=== PATIENT | male | born 1970 | race American Indian/Alaskan Native ===

== ENCOUNTER 2021-03-11 13:55 | Emergency (ER) | payer SELFPAY ==
--- NOTE | 2021-03-11 14:38 | EDM.PDOC ---
<Juan Samuels - Last Filed: 03/12/21 05:37> ED HPI GENERAL MEDICAL PROBLEM - General Chief Complaint: Cardiovascular Problem Stated Complaint: [facility] Time Seen by Provider: 03/11/21 14:00 - Related Data Allergies Allergy/AdvReac Type Severity Reaction Status Date / Time No Known Allergies Allergy Verified 03/11/21 14:08 Home Meds: Home Meds . [No Known Home Meds] 03/11/21 [History] ED CARDIOLOGY PROCEDURES - Endotracheal Intubation Time of Intubation: 19:30 ET Intubation Indication: Respiratory Failure, Airway Protection Preparation: Balloon Tested, BVM Set Up, Difficult Airway Equip Airway Assessment: Obese, Loose Teeth Pre-Oxygenation: 100% FiO2 Anesthesia Meds: Etomidate, Rocuronium Placement: Orotracheal Cords Visualized: Yes ETT Size In mm: 8.0 Number of Attempts: 1 Confirmed By: CO2 Indicator, Bilateral Breath Sounds, Chest Xray Tube Secured By: By RT Course - Re-Assessments/Exams Free Text/Narrative Re-Assessment/Exam: 03/11/21 19:46 Patient was evaluated by myself after routine shift change. Patient obtunded with worsening blood gas. Patient had CO2 level of 120. With altered mental status and rising CO2 levels, patient was immediately intubated without complication. Patient was started on propofol and fentanyl for sedation purposes. End-tidal CO2 showed improvement in the 60s. Patient oxygen level remained stable. 03/11/21 21:30 Patient becoming hypotensive. Given 500 cc fluid boluses patient had not received any fluids up until this point. We will have low threshold to start pressors for this patient given his critical illness. 03/11/21 23:00 Patient had continued to remain hypotensive in the emergency room despite IV fluids. Patient initiated on Levophed drip with improvement in blood pressure. A left internal jugular central vein catheter was placed for IV medications including Levophed. 03/12/21 02:45 Left internal jugular central venous catheter withdrawn approximately 5 cm based on chest x-ray. Departure - Departure Disposition: DC/Tfer to [facility] 02 Clinical Impression: Respiratory failure, Renal insufficiency, Hepatic insufficiency, Alcoholism Referrals: PCP,None [Primary Care Provider] - Forms: ED Department Discharge Critical Care Note - Critical Care Note Total Time (mins): 150 Comments: Critical Care Procedure Note Total critical care time: Approximately 150 minutes Due to a high probability of clinically significant, life threatening deterioration, the patient required my highest level of preparedness to intervene emergently and I personally spent this critical care time directly and personally managing the patient. This critical care time included obtaining a history; examining the patient; pulse oximetry; ordering and review of studies; arranging urgent treatment with development of a management plan; evaluation of patient's response to treatment; frequent reassessment; and, discussions with other providers. This critical care time was performed to assess and manage the high probability of imminent, life-threatening deterioration that could result in multi-organ failure. It was exclusive of separately billable procedures and treating other patients and teaching time. - Assessment/Plan Assessment:: Patient is a 50-year-old male presenting to the emergency room with symptoms concerning for pneumonia, alcohol withdrawal, hepatic failure. Received patient is a signout from Dr. Crespo. On my initial examination, patient was obtunded and required immediate intubation for hypercapnic respiratory failure and altered mental status. Following intubation, patient did become hypotensive which seem likely secondary to intravascular volume depletion, sepsis, critical illness. Potentially confounding factor of undiagnosed heart failure. The patient did respond well to Levophed infusion. A left internal jugular central venous catheter was placed in the interim. In addition, cefepime and Flagyl were initiated for your coverage of possible aspiration pneumonia and sepsis. During the course of my shift, patient remained stable and on the ventilator. There are no beds available in this hospital. There are no beds available in the state of [place]. Several surrounding states including [place], [place], [place] were contacted to no avail. <Cleve Crespo - Last Filed: 03/12/21 13:15> ED HPI GENERAL MEDICAL PROBLEM - History of Present Illness INITIAL COMMENTS - FREE TEXT/NARRATIVE: 50-year-old male brought in by EMS with severe swelling. Patient states he needs to get his life in order. He has been a heavy drinker for many years his last drink was this morning he had a pint of whiskey. The patient has developed significant swelling in his abdomen pelvis groin and lower extremities. He has a hard time estimating how long this has been going on but does think it has been getting worse. Patient is not able to give much more patient denies any chest pain at this time he is short of breath. He is not taking any routine medications and denies significant past medical history. Social & Family History - Tobacco Use Tobacco Use Status *Q: Current Every Day Tobacco User Years of Tobacco use: 40 Packs/Tins Daily: 2 - Caffeine Use Caffeine Use: Reports: None - Alcohol Use Days Per Week of Alcohol Use: 7 Number of Drinks Per Day: 20 Total Drinks Per Week: 140 - Recreational Drug Use Recreational Drug Use: Yes Recreational Drug Type: Reports: Marijuana/Hashish ED ROS GENERAL - Review of Systems Review Of Systems: See Below Constitutional: Reports: No Symptoms HEENT: Reports: No Symptoms Respiratory: Reports: Shortness of Breath Cardiovascular: Reports: Edema. Denies: Chest Pain Endocrine: Reports: Fatigue GI/Abdominal: Reports: Abdominal Pain. Denies: Nausea, Vomiting Skin: Reports: Other (Significant swelling with various draining lesions) Neurological: Reports: Other Psychiatric: Reports: Other (He could be intoxicated still he is slow to respond) ED EXAM, GENERAL - Physical Exam Exam: See Below Exam Limited By: Other (He could be intoxicated he is slow to respond) General Appearance: No Apparent Distress, Other (He is on supplemental oxygen 7 L per nasal cannula he is grossly edematous from head to toe) Eye Exam: Bilateral Eye: Normal Inspection Nose: Normal Inspection, Normal Mucosa, No Blood Throat/Mouth: Normal Inspection, Normal Lips, Normal Teeth, Normal Gums, Normal Oropharynx, Normal Voice, No Airway Compromise Neck: Normal Inspection, Supple, Non-Tender, Full Range of Motion, Other (He is swelling mild swelling up to this level) Respiratory/Chest: No Respiratory Distress, Lungs Clear, Normal Breath Sounds Cardiovascular: Regular Rate, Rhythm, No Murmur, Other (Plus pitting edema lower extremities on up) GI/Abdominal: Normal Bowel Sounds, Distended (Probable ascites), Other (Marked edema also in the abdominal wall some oozing of the skin superior to the umbilicus) (Male) Exam: Other (Marked testicular and genital swelling) Extremities: Other (Marked swelling) Neurological: Slow to Respond #1 Interpretation EKG Date: 03/11/21 Rhythm: NSR Rate (Beats/Min): 109 [place]: Normal P-Wave: Present QRS: Other (Low voltage) ST-T: Normal QT: Normal Comparison: NA - No Prior EKG EKG Interpretation Comments: Abnormal EKG Course - Vital Signs Last Recorded V/S: Last Vital Signs Temp 36.9 C 03/12/21 11:05 Pulse 117 H 03/12/21 12:18 Resp 26 H 03/12/21 12:18 BP 124/75 03/12/21 12:18 Pulse Ox 92 L 03/12/21 12:18 - Orders/Labs/Meds Orders: Active Orders 24 hr Category Date Time Status Insert Guardado Catheter [Insert Urinary Catheter] [OM.PC] Care 03/11/21 16:05 Ordered Routine RASS Sedation Scale [RC] ASDIRECTED Care 03/11/21 19:46 Active RT Ventilator ED, Adult [RC] ASDIRECTED Care 03/12/21 10:24 Active Urinary Catheter Assessment [RC] ASDIRECTED Care 03/11/21 16:05 Active Chest 1V Frontal [CR] DAILY Exams 03/13/21 07:00 Ordered Chest 1V Frontal [CR] DAILY Exams 03/14/21 07:00 Ordered BLOOD CULTURE [MREF] Stat Lab 03/11/21 17:30 Received BLOOD CULTURE [MREF] Stat Lab 03/11/21 17:30 Received BLOOD GAS VENOUS [BG] Stat Lab 03/11/21 19:42 Received Cefepime [Maxipime] 2 gm Med 03/12/21 07:30 Active Sodium Chloride 0.9% [Normal Saline] 50 ml IV Q8H Ketamine [Ketalar] 500 mg Med 03/11/21 22:00 Active Sodium Chloride 0.9% [Normal Saline] 490 ml IV TITRATE Norepinephrine [Levophed] 8 mg Med 03/12/21 09:15 Active Dextrose 5% in Water 242 ml IV TITRATE Sodium Chloride 0.9% [Normal Saline] 1,000 ml Med 03/12/21 07:15 Active IV ASDIRECTED fentaNYL [Sublimaze] 2,500 mcg Med 03/11/21 20:00 Active Sodium Chloride 0.9% [Normal Saline] 200 ml IV TITRATE metroNIDAZOLE/Normal Saline [Flagyl in NS 500 MG/100 ML Med 03/12/21 07:30 Active ] 500 mg Premix Bag 1 bag IV Q8H propofoL [Diprivan 100 ML] 100 ml Med 03/11/21 20:00 Active IV TITRATE Blood Culture x2 Reflex Set [OM.PC] Stat Oth 03/11/21 17:05 Ordered Desired Level of Sedation (RASS) [AST] Click to Edit Oth 03/11/21 19:46 Orde red Medication Orders Propofol (Diprivan 100 Ml) 100 mls @ 3.674 mls/hr IV TITRATE ANDER; Protocol Last Titration: 03/12/21 08:02 Dose: 20 mcg/kg/min, 14.696 mls/hr Documented by: Titration: 03/12/21 06:31 Dose: 15 mcg/kg/min, 11.022 mls/hr Documented by: Admin: 03/12/21 04:15 Dose: 10 mcg/kg/min, 7.348 mls/hr Documented by: Titration: 03/12/21 04:15 Dose: 10 mcg/kg/min, 7.348 mls/hr Documented by: Titration: 03/11/21 22:27 Dose: 10 mcg/kg/min, 7.348 mls/hr Documented by: Titration: 03/11/21 20:09 Dose: 15 mcg/kg/min, 11.022 mls/hr Documented by: Admin: 03/11/21 20:06 Dose: 20 mcg/kg/min, 14.696 mls/hr Documented by: FELIPE Fentanyl 2,500 mcg/ Sodium (Chloride) 250 mls @ 12.247 mls/hr IV TITRATE ANDER; Protocol Last Titration: 03/12/21 11:07 Dose: 5 mcg/kg/hr, 61.235 mls/hr Documented by: Admin: 03/12/21 06:46 Dose: 4 mcg/kg/hr, 48.988 mls/hr Documented by: Titration: 03/12/21 06:33 Dose: 4 mcg/kg/hr, 48.988 mls/hr Documented by: Admin: 03/12/21 01:26 Dose: 4 mcg/kg/hr, 48.988 mls/hr Documented by: Titration: 03/12/21 01:26 Dose: 4 mcg/kg/hr, 48.988 mls/hr Documented by: Titration: 03/11/21 20:53 Dose: 4 mcg/kg/hr, 48.988 mls/hr Documented by: Admin: 03/11/21 20:06 Dose: 2.5 mcg/kg/hr, 30.618 mls/hr Documented by: FELIPE Ketamine HCl 500 mg/ Sodium (Chloride) 500 mls @ 4.8 mls/hr IV TITRATE ANDER Last Infusion: 03/12/21 02:45 Dose: 20 mls/hr Documented by: Infusion: 03/11/21 23:41 Dose: 10 mls/hr Documented by: Admin: 03/11/21 22:27 Dose: 4.8 mls/hr Documented by: FBAIAN Cefepime HCl 2 gm/ Sodium (Chloride) 50 mls @ 100 mls/hr IV Q8H ANDER Stop: 03/17/21 07:31 Last Admin: 03/12/21 09:07 Dose: 100 mls/hr Documented by: CORRINE Metronidazole 500 mg/ Premix 100 mls @ 100 mls/hr IV Q8H ANDER Stop: 03/17/21 07:31 Last Admin: 03/12/21 08:01 Dose: 100 mls/hr Documented by: CORRINE Sodium Chloride (Normal Saline) 1,000 mls @ 75 mls/hr IV ASDIRECTED ANDER Norepinephrine Bitartrate 8 mg (/ Dextrose/Water) 250 mls @ 3.75 mls/hr IV TITRATE ANDER; Protocol Last Titration: 03/12/21 10:00 Dose: 17 mcg/min, 31.875 mls/hr Documented by: Titration: 03/12/21 09:18 Dose: 10 mcg/min, 18.75 mls/hr Documented by: Admin: 03/12/21 09:16 Dose: 15 mcg/min, 28.125 mls/hr Documented by: CORRINE Labs: Laboratory Tests 03/11/21 03/11/21 03/11/21 Range/Units 14:10 14:50 14:50 WBC 10.95 H (4.23-9.07) K/mm3 RBC 4.65 (4.63-6.08) M/mm3 Hgb 14.2 (13.7-17.5) gm/dl Hct 46.2 (40.1-51.0) % MCV 99.4 H (79.0-92.2) fl MCH 30.5 (25.7-32.2) pg MCHC 30.7 L (32.2-35.5) g/dl RDW Std Deviation 55.8 H (35.1-43.9) fL Plt Count 275 (163-337) K/mm3 MPV 8.6 L (9.4-12.3) fl Neut % (Auto) (34.0-67.9) % Lymph % (Auto) (21.8-53.1) % [place] % (Auto) (5.3-12.2) % Eos % (Auto) (0.8-7.0) Baso % (Auto) (0.1-1.2) % Neut # (Auto) (1.78-5.38) K/mm3 Lymph # (Auto) (1.32-3.57) K/mm3 [place] # (Auto) (0.30-0.82) K/mm3 Eos # (Auto) (0.04-0.54) K/mm3 Baso # (Auto) (0.01-0.08) K/mm3 Neutrophils % (Manual) 91 H (40-60) % Band Neutrophils % 0 (0-10) % Lymphocytes % (Manual) 8 L (20-40) % Atypical Lymphs % 0 % Monocytes % (Manual) 1 L (2-10) % Eosinophils % (Manual) 0 L (0.8-7.0) % Basophils % (Manual) 0 L (0.2-1.2) Manual Slide Review Platelet Estimate Adequate Anisocytosis 1+ slight Macrocytosis 1+ slight RBC Morph Comment Not Reportable PT 13.2 H (9.7-12.0) SECONDS INR 1.20 Puncture Site ABG pH (7.35-7.45) ABG pCO2 (35.0-45.0) mmHg ABG pO2 (80.0-100.0) mmHg ABG HCO3 (22.0-26.0) meq/L ABG O2 Saturation (96.0-97.0) % ABG Base Excess (-2-2.0) Julián Test A-a Gradient mmHg O2 Delivery Device Oxygen Flow Rate FiO2 (21.00-100.00) % Tidal Volume cc PEEP cmH20 Sodium (136-145) mEq/L Potassium (3.5-5.1) mEq/L Chloride (98-107) mEq/L Carbon Dioxide (21-32) mEq/L Anion Gap (5-15) BUN (7-18) mg/dL Creatinine (0.7-1.3) mg/dL Est Cr Clr Drug Dosing mL/min Estimated GFR (MDRD) (>60) mL/min BUN/Creatinine Ratio (14-18) Glucose (70-99) mg/dL Lactic Acid (0.4-2.0) mmol/L Calcium (8.5-10.1) mg/dL Total Bilirubin (0.2-1.0) mg/dL Direct Bilirubin (0.0-0.2) mg/dl GGT (15-85) U/L AST (15-37) U/L ALT (16-63) U/L Alkaline Phosphatase (46-116) U/L Ammonia (11-32) umol/L Troponin I (0.00-0.056) ng/mL NT-Pro-B Natriuret Pep (0-125) pg/mL Total Protein (6.4-8.2) g/dl Albumin (3.4-5.0) g/dl Globulin gm/dL Albumin/Globulin Ratio (1-2) Urine Color (Yellow) Urine Appearance (Clear) Urine pH (5.0-8.0) Ur Specific Preemption (1.005-1.030) Urine Protein (Negative) Urine Glucose (UA) (Negative) Urine Ketones (Negative) Urine Occult Blood (Negative) Urine Nitrite (Negative) Urine Bilirubin (Negative) Urine Urobilinogen (0.2-1.0) Ur Leukocyte Esterase (Negative) U Hyaline Cast (Auto) (0-5) /lpf Urine RBC (0-5) /hpf Urine WBC (0-5) /hpf Ur Squamous Epith Cells (0-5) /hpf Urine Bacteria (FEW) /hpf Urine Mucus (FEW) /hpf Urine Opiates Screen (XIYMQP=637) Ur Buprenorphine Scrn (CUTOFF=10) Ur Oxycodone Screen (MUT6WJ=562) Urine Methadone Screen (JCS7TE=874) Ur Propoxyphene Screen (ZOIUOQ=426) Ur Barbiturates Screen (DLEIYO=809) Ur Tricyclics Screen (SVUHUQ=666) Ur Phencyclidine Scrn (CUTOFF=25) Ur Amphetamine Screen (DJPEOF=712) U Methamphetamines Scrn (IKXDDO=936) U Benzodiazepines Scrn (WCPXJS=179) U Cocaine Metab Screen (HJULVQ=374) U Marijuana (THC) Screen (CUTOFF=50) Ethyl Alcohol (0.00) gm% SARS-CoV-2 RNA (MOOSE) Negative (NEGATIVE) 03/11/21 03/11/21 03/11/21 Range/Units 14:50 14:50 14:50 WBC (4.23-9.07) K/mm3 RBC (4.63-6.08) M/mm3 Hgb (13.7-17.5) gm/dl Hct (40.1-51.0) % MCV (79.0-92.2) fl MCH (25.7-32.2) pg MCHC (32.2-35.5) g/dl RDW Std Deviation (35.1-43.9) fL Plt Count (163-337) K/mm3 MPV (9.4-12.3) fl Neut % (Auto) (34.0-67.9) % Lymph % (Auto) (21.8-53.1) % [place] % (Auto) (5.3-12.2) % Eos % (Auto) (0.8-7.0) Baso % (Auto) (0.1-1.2) % Neut # (Auto) (1.78-5.38) K/mm3 Lymph # (Auto) (1.32-3.57) K/mm3 [place] # (Auto) (0.30-0.82) K/mm3 Eos # (Auto) (0.04-0.54) K/mm3 Baso # (Auto) (0.01-0.08) K/mm3 Neutrophils % (Manual) (40-60) % Band Neutrophils % (0-10) % Lymphocytes % (Manual) (20-40) % Atypical Lymphs % % Monocytes % (Manual) (2-10) % Eosinophils % (Manual) (0.8-7.0) % Basophils % (Manual) (0.2-1.2) Manual Slide Review Platelet Estimate Anisocytosis Macrocytosis RBC Morph Comment PT (9.7-12.0) SECONDS INR Puncture Site ABG pH (7.35-7.45) ABG pCO2 (35.0-45.0) mmHg ABG pO2 (80.0-100.0) mmHg ABG HCO3 (22.0-26.0) meq/L ABG O2 Saturation (96.0-97.0) % ABG Base Excess (-2-2.0) Julián Test A-a Gradient mmHg O2 Delivery Device Oxygen Flow Rate FiO2 (21.00-100.00) % Tidal Volume cc PEEP cmH20 Sodium 118 L (136-145) mEq/L Potassium 5.8 H (3.5-5.1) mEq/L Chloride 83 L (98-107) mEq/L Carbon Dioxide 29 (21-32) mEq/L Anion Gap 11.8 (5-15) BUN 23 H (7-18) mg/dL Creatinine 2.1 H (0.7-1.3) mg/dL Est Cr Clr Drug Dosing 37.55 mL/min Estimated GFR (MDRD) 33 (>60) mL/min BUN/Creatinine Ratio 11.0 L (14-18) Glucose 133 H (70-99) mg/dL Lactic Acid (0.4-2.0) mmol/L Calcium 7.8 L (8.5-10.1) mg/dL Total Bilirubin 2.0 H (0.2-1.0) mg/dL Direct Bilirubin 1.60 H (0.0-0.2) mg/dl GGT 526 H (15-85) U/L AST 75 H (15-37) U/L ALT 52 (16-63) U/L Alkaline Phosphatase 149 H (46-116) U/L Ammonia 76 H (11-32) umol/L Troponin I 0.068 H* (0.00-0.056) ng/mL NT-Pro-B Natriuret Pep 5240 H (0-125) pg/mL Total Protein 8.3 H (6.4-8.2) g/dl Albumin 2.9 L (3.4-5.0) g/dl Globulin 5.4 gm/dL Albumin/Globulin Ratio 0.5 L (1-2) Urine Color (Yellow) Urine Appearance (Clear) Urine pH (5.0-8.0) Ur Specific Pre[place] (1.005-1.030) Urine Protein (Negative) Urine Glucose (UA) (Negative) Urine Ketones (Negative) Urine Occult Blood (Negative) Urine Nitrite (Negative) Urine Bilirubin (Negative) Urine Urobilinogen (0.2-1.0) Ur Leukocyte Esterase (Negative) U Hyaline Cast (Auto) (0-5) /lpf Urine RBC (0-5) /hpf Urine WBC (0-5) /hpf Ur Squamous Epith Cells (0-5) /hpf Urine Bacteria (FEW) /hpf Urine Mucus (FEW) /hpf Urine Opiates Screen (IAUXTS=928) Ur Buprenorphine Scrn (CUTOFF=10) Ur Oxycodone Screen (WDK4KX=539) Urine Methadone Screen (BLQ3BW=409) Ur Propoxyphene Screen (IBDNST=520) Ur Barbiturates Screen (BUGEJM=199) Ur Tricyclics Screen (ASAJYH=972) Ur Phencyclidine Scrn (CUTOFF=25) Ur Amphetamine Screen (HTODNX=227) U Methamphetamines Scrn (CUAUTY=976) U Benzodiazepines Scrn (BFCXXH=406) U Cocaine Metab Screen (YPFXZO=320) U Marijuana (THC) Screen (CUTOFF=50) Ethyl Alcohol 0.19 (0.00) gm% SARS-CoV-2 RNA (MOOSE) (NEGATIVE) 03/11/21 03/11/21 03/11/21 Range/Units 15:53 16:05 16:05 WBC (4.23-9.07) K/mm3 RBC (4.63-6.08) M/mm3 Hgb (13.7-17.5) gm/dl Hct (40.1-51.0) % MCV (79.0-92.2) fl MCH (25.7-32.2) pg MCHC (32.2-35.5) g/dl RDW Std Deviation (35.1-43.9) fL Plt Count (163-337) K/mm3 MPV (9.4-12.3) fl Neut % (Auto) (34.0-67.9) % Lymph % (Auto) (21.8-53.1) % [place] % (Auto) (5.3-12.2) % Eos % (Auto) (0.8-7.0) Baso % (Auto) (0.1-1.2) % Neut # (Auto) (1.78-5.38) K/mm3 Lymph # (Auto) (1.32-3.57) K/mm3 [place] # (Auto) (0.30-0.82) K/mm3 Eos # (Auto) (0.04-0.54) K/mm3 Baso # (Auto) (0.01-0.08) K/mm3 Neutrophils % (Manual) (40-60) % Band Neutrophils % (0-10) % Lymphocytes % (Manual) (20-40) % Atypical Lymphs % % Monocytes % (Manual) (2-10) % Eosinophils % (Manual) (0.8-7.0) % Basophils % (Manual) (0.2-1.2) Manual Slide Review Platelet Estimate Anisocytosis Macrocytosis RBC Morph Comment PT (9.7-12.0) SECONDS INR Puncture Site Rt radial ABG pH 7.05 L* (7.35-7.45) ABG pCO2 113.2 H* (35.0-45.0) mmHg ABG pO2 197.0 H* (80.0-100.0) mmHg ABG HCO3 29.8 H (22.0-26.0) meq/L ABG O2 Saturation 98.8 H (96.0-97.0) % ABG Base Excess -4.8 L (-2-2.0) Julián Test Positive A-a Gradient 267 mmHg O2 Delivery Device Nrb mask Oxygen Flow Rate FiO2 85.00 (21.00-100.00) % Tidal Volume cc PEEP cmH20 Sodium (136-145) mEq/L Potassium (3.5-5.1) mEq/L Chloride (98-107) mEq/L Carbon Dioxide (21-32) mEq/L Anion Gap (5-15) BUN (7-18) mg/dL Creatinine (0.7-1.3) mg/dL Est Cr Clr Drug Dosing mL/min Estimated GFR (MDRD) (>60) mL/min BUN/Creatinine Ratio (14-18) Glucose (70-99) mg/dL Lactic Acid (0.4-2.0) mmol/L Calcium (8.5-10.1) mg/dL Total Bilirubin (0.2-1.0) mg/dL Direct Bilirubin (0.0-0.2) mg/dl GGT (15-85) U/L AST (15-37) U/L ALT (16-63) U/L Alkaline Phosphatase (46-116) U/L Ammonia (11-32) umol/L Troponin I (0.00-0.056) ng/mL NT-Pro-B Natriuret Pep (0-125) pg/mL Total Protein (6.4-8.2) g/dl Albumin (3.4-5.0) g/dl Globulin gm/dL Albumin/Globulin Ratio (1-2) Urine Color Monisha H (Yellow) Urine Appearance Slt cloudy H (Clear) Urine pH 5.5 (5.0-8.0) Ur Specific [place] > or = 1.030 (1.005-1.030) Urine Protein 3+ H (Negative) Urine Glucose (UA) Trace H (Negative) Urine Ketones Trace H (Negative) Urine Occult Blood 1+ H (Negative) Urine Nitrite Negative (Negative) Urine Bilirubin 3+ H (Negative) Urine Urobilinogen >=8.0 H (0.2-1.0) Ur Leukocyte Esterase Negative (Negative) U Hyaline Cast (Auto) 20-30 H (0-5) /lpf Urine RBC 10-20 H (0-5) /hpf Urine WBC 0-5 (0-5) /hpf Ur Squamous Epith Cells 10-20 H (0-5) /hpf Urine Bacteria Many H (FEW) /hpf Urine Mucus Few (FEW) /hpf Urine Opiates Screen Negative (LLXLYC=370) Ur Buprenorphine Scrn Negative (CUTOFF=10) Ur Oxycodone Screen Negative (DLG7NU=713) Urine Methadone Screen Negative (ENP7YX=065) Ur Propoxyphene Screen Negative (AVXXAD=828) Ur Barbiturates Screen Negative (EPECHX=929) Ur Tricyclics Screen Negative (HSJZTO=802) Ur Phencyclidine Scrn Negative (CUTOFF=25) Ur Amphetamine Screen Negative (PGSLEA=806) U Methamphetamines Scrn Negative (RQIFYX=594) U Benzodiazepines Scrn Negative (RSFKHN=885) U Cocaine Metab Screen Negative (IEDGFV=438) U Marijuana (THC) Screen Presumptive positive H (CUTOFF=50) Ethyl Alcohol (0.00) gm% SARS-CoV-2 RNA (MOOSE) (NEGATIVE) 03/11/21 03/11/21 03/11/21 Range/Units 17:30 19:03 20:18 WBC (4.23-9.07) K/mm3 RBC (4.63-6.08) M/mm3 Hgb (13.7-17.5) gm/dl Hct (40.1-51.0) % MCV (79.0-92.2) fl MCH (25.7-32.2) pg MCHC (32.2-35.5) g/dl RDW Std Deviation (35.1-43.9) fL Plt Count (163-337) K/mm3 MPV (9.4-12.3) fl Neut % (Auto) (34.0-67.9) % Lymph % (Auto) (21.8-53.1) % [place] % (Auto) (5.3-12.2) % Eos % (Auto) (0.8-7.0) Baso % (Auto) (0.1-1.2) % Neut # (Auto) (1.78-5.38) K/mm3 Lymph # (Auto) (1.32-3.57) K/mm3 [place] # (Auto) (0.30-0.82) K/mm3 Eos # (Auto) (0.04-0.54) K/mm3 Baso # (Auto) (0.01-0.08) K/mm3 Neutrophils % (Manual) (40-60) % Band Neutrophils % (0-10) % Lymphocytes % (Manual) (20-40) % Atypical Lymphs % % Monocytes % (Manual) (2-10) % Eosinophils % (Manual) (0.8-7.0) % Basophils % (Manual) (0.2-1.2) Manual Slide Review Platelet Estimate Anisocytosis Macrocytosis RBC Morph Comment PT (9.7-12.0) SECONDS INR Puncture Site Rt radial ABG pH 7.04 L* (7.35-7.45) ABG pCO2 119.6 H* (35.0-45.0) mmHg ABG pO2 77.0 L (80.0-100.0) mmHg ABG HCO3 30.7 H (22.0-26.0) meq/L ABG O2 Saturation 89.7 L (96.0-97.0) % ABG Base Excess -4.5 L (-2-2.0) Julián Test A-a Gradient mmHg O2 Delivery Device Bipap Oxygen Flow Rate 15.0 FiO2 76.00 (21.00-100.00) % Tidal Volume cc PEEP cmH20 Sodium 120 L (136-145) mEq/L Potassium 5.4 H (3.5-5.1) mEq/L Chloride 86 L (98-107) mEq/L Carbon Dioxide 30 (21-32) mEq/L Anion Gap 9.4 (5-15) BUN 25 H (7-18) mg/dL Creatinine 2.1 H (0.7-1.3) mg/dL Est Cr Clr Drug Dosing 37.55 mL/min Estimated GFR (MDRD) 33 (>60) mL/min BUN/Creatinine Ratio 11.9 L (14-18) Glucose 111 H (70-99) mg/dL Lactic Acid 1.1 (0.4-2.0) mmol/L Calcium 7.2 L (8.5-10.1) mg/dL Total Bilirubin (0.2-1.0) mg/dL Direct Bilirubin (0.0-0.2) mg/dl GGT (15-85) U/L AST (15-37) U/L ALT (16-63) U/L Alkaline Phosphatase (46-116) U/L Ammonia (11-32) umol/L Troponin I (0.00-0.056) ng/mL NT-Pro-B Natriuret Pep (0-125) pg/mL Total Protein (6.4-8.2) g/dl Albumin (3.4-5.0) g/dl Globulin gm/dL Albumin/Globulin Ratio (1-2) Urine Color (Yellow) Urine Appearance (Clear) Urine pH (5.0-8.0) Ur Specific Preemption (1.005-1.030) Urine Protein (Negative) Urine Glucose (UA) (Negative) Urine Ketones (Negative) Urine Occult Blood (Negative) Urine Nitrite (Negative) Urine Bilirubin (Negative) Urine Urobilinogen (0.2-1.0) Ur Leukocyte Esterase (Negative) U Hyaline Cast (Auto) (0-5) /lpf Urine RBC (0-5) /hpf Urine WBC (0-5) /hpf Ur Squamous Epith Cells (0-5) /hpf Urine Bacteria (FEW) /hpf Urine Mucus (FEW) /hpf Urine Opiates Screen (BNPFVT=702) Ur Buprenorphine Scrn (CUTOFF=10) Ur Oxycodone Screen (ZXG2GW=126) Urine Methadone Screen (TWN9NE=545) Ur Propoxyphene Screen (TVAVRF=616) Ur Barbiturates Screen (LLWFWG=151) Ur Tricyclics Screen (FRLIPS=421) Ur Phencyclidine Scrn (CUTOFF=25) Ur Amphetamine Screen (CVFBUG=693) U Methamphetamines Scrn (PMKTZE=295) U Benzodiazepines Scrn (TQPPPF=330) U Cocaine Metab Screen (JQLJIM=002) U Marijuana (THC) Screen (CUTOFF=50) Ethyl Alcohol (0.00) gm% SARS-CoV-2 RNA (MOOSE) (NEGATIVE) 03/11/21 03/11/21 03/12/21 Range/Units 20:18 20:18 05:23 WBC 13.36 H (4.23-9.07) K/mm3 RBC 4.32 L (4.63-6.08) M/mm3 Hgb 13.2 L (13.7-17.5) gm/dl Hct 42.7 (40.1-51.0) % MCV 98.8 H (79.0-92.2) fl MCH 30.6 (25.7-32.2) pg MCHC 30.9 L (32.2-35.5) g/dl RDW Std Deviation 53.7 H (35.1-43.9) fL Plt Count 226 (163-337) K/mm3 MPV 8.8 L (9.4-12.3) fl Neut % (Auto) 78.6 H (34.0-67.9) % Lymph % (Auto) 8.0 L (21.8-53.1) % [place] % (Auto) 12.9 H (5.3-12.2) % Eos % (Auto) 0.1 L (0.8-7.0) Baso % (Auto) 0.0 L (0.1-1.2) % Neut # (Auto) 10.49 H (1.78-5.38) K/mm3 Lymph # (Auto) 1.07 L (1.32-3.57) K/mm3 [place] # (Auto) 1.73 H (0.30-0.82) K/mm3 Eos # (Auto) 0.01 L (0.04-0.54) K/mm3 Baso # (Auto) 0.00 L (0.01-0.08) K/mm3 Neutrophils % (Manual) (40-60) % Band Neutrophils % (0-10) % Lymphocytes % (Manual) (20-40) % Atypical Lymphs % % Monocytes % (Manual) (2-10) % Eosinophils % (Manual) (0.8-7.0) % Basophils % (Manual) (0.2-1.2) Manual Slide Review Normal smear Platelet Estimate Anisocytosis Macrocytosis RBC Morph Comment PT (9.7-12.0) SECONDS INR Puncture Site Lt radial ABG pH 7.18 L* (7.35-7.45) ABG pCO2 77.2 H* (35.0-45.0) mmHg ABG pO2 190.0 H* (80.0-100.0) mmHg ABG HCO3 27.8 H (22.0-26.0) meq/L ABG O2 Saturation 99.4 H (96.0-97.0) % ABG Base Excess -2.4 L (-2-2.0) Julián Test Positive A-a Gradient mmHg O2 Delivery Device Ventilator Oxygen Flow Rate FiO2 (21.00-100.00) % Tidal Volume cc PEEP cmH20 Sodium (136-145) mEq/L Potassium (3.5-5.1) mEq/L Chloride (98-107) mEq/L Carbon Dioxide (21-32) mEq/L Anion Gap (5-15) BUN (7-18) mg/dL Creatinine (0.7-1.3) mg/dL Est Cr Clr Drug Dosing mL/min Estimated GFR (MDRD) (>60) mL/min BUN/Creatinine Ratio (14-18) Glucose (70-99) mg/dL Lactic Acid (0.4-2.0) mmol/L Calcium (8.5-10.1) mg/dL Total Bilirubin (0.2-1.0) mg/dL Direct Bilirubin (0.0-0.2) mg/dl GGT (15-85) U/L AST (15-37) U/L ALT (16-63) U/L Alkaline Phosphatase (46-116) U/L Ammonia 50 H (11-32) umol/L Troponin I (0.00-0.056) ng/mL NT-Pro-B Natriuret Pep (0-125) pg/mL Total Protein (6.4-8.2) g/dl Albumin (3.4-5.0) g/dl Globulin gm/dL Albumin/Globulin Ratio (1-2) Urine Color (Yellow) Urine Appearance (Clear) Urine pH (5.0-8.0) Ur Specific Preemption (1.005-1.030) Urine Protein (Negative) Urine Glucose (UA) (Negative) Urine Ketones (Negative) Urine Occult Blood (Negative) Urine Nitrite (Negative) Urine Bilirubin (Negative) Urine Urobilinogen (0.2-1.0) Ur Leukocyte Esterase (Negative) U Hyaline Cast (Auto) (0-5) /lpf Urine RBC (0-5) /hpf Urine WBC (0-5) /hpf Ur Squamous Epith Cells (0-5) /hpf Urine Bacteria (FEW) /hpf Urine Mucus (FEW) /hpf Urine Opiates Screen (VNYCAU=752) Ur Buprenorphine Scrn (CUTOFF=10) Ur Oxycodone Screen (KGB7DD=665) Urine Methadone Screen (YVL5QP=997) Ur Propoxyphene Screen (BWEXYR=193) Ur Barbiturates Screen (WGDAPM=567) Ur Tricyclics Screen (KCQWEY=350) Ur Phencyclidine Scrn (CUTOFF=25) Ur Amphetamine Screen (UHNRQT=090) U Methamphetamines Scrn (WEEOES=208) U Benzodiazepines Scrn (RUQJLT=110) U Cocaine Metab Screen (CLEDTG=102) U Marijuana (THC) Screen (CUTOFF=50) Ethyl Alcohol (0.00) gm% SARS-CoV-2 RNA (MOOSE) (NEGATIVE) 03/12/21 03/12/21 03/12/21 Range/Units 05:23 09:52 11:46 WBC (4.23-9.07) K/mm3 RBC (4.63-6.08) M/mm3 Hgb (13.7-17.5) gm/dl Hct (40.1-51.0) % MCV (79.0-92.2) fl MCH (25.7-32.2) pg MCHC (32.2-35.5) g/dl RDW Std Deviation (35.1-43.9) fL Plt Count (163-337) K/mm3 MPV (9.4-12.3) fl Neut % (Auto) (34.0-67.9) % Lymph % (Auto) (21.8-53.1) % [place] % (Auto) (5.3-12.2) % Eos % (Auto) (0.8-7.0) Baso % (Auto) (0.1-1.2) % Neut # (Auto) (1.78-5.38) K/mm3 Lymph # (Auto) (1.32-3.57) K/mm3 [place] # (Auto) (0.30-0.82) K/mm3 Eos # (Auto) (0.04-0.54) K/mm3 Baso # (Auto) (0.01-0.08) K/mm3 Neutrophils % (Manual) (40-60) % Band Neutrophils % (0-10) % Lymphocytes % (Manual) (20-40) % Atypical Lymphs % % Monocytes % (Manual) (2-10) % Eosinophils % (Manual) (0.8-7.0) % Basophils % (Manual) (0.2-1.2) Manual Slide Review Platelet Estimate Anisocytosis Macrocytosis RBC Morph Comment PT (9.7-12.0) SECONDS INR Puncture Site Rt radial ABG pH 7.28 L (7.35-7.45) ABG pCO2 65.5 H (35.0-45.0) mmHg ABG pO2 67.0 L (80.0-100.0) mmHg ABG HCO3 29.8 H (22.0-26.0) meq/L ABG O2 Saturation 90.9 L (96.0-97.0) % ABG Base Excess 1.8 (-2-2.0) Julián Test A-a Gradient 386 mmHg O2 Delivery Device Ventilator Oxygen Flow Rate FiO2 75.00 (21.00-100.00) % Tidal Volume 500.0 cc PEEP 5.0 cmH20 Sodium 115 L* 119 L (136-145) mEq/L Potassium 5.6 H 5.6 H (3.5-5.1) mEq/L Chloride 81 L 85 L (98-107) mEq/L Carbon Dioxide 26 28 (21-32) mEq/L Anion Gap 13.6 11.6 (5-15) BUN 26 H 25 H (7-18) mg/dL Creatinine 1.7 H 1.5 H (0.7-1.3) mg/dL Est Cr Clr Drug Dosing 46.39 52.58 mL/min Estimated GFR (MDRD) 43 49 (>60) mL/min BUN/Creatinine Ratio 15.3 16.7 (14-18) Glucose 102 H 92 (70-99) mg/dL Lactic Acid (0.4-2.0) mmol/L Calcium 7.4 L 7.6 L (8.5-10.1) mg/dL Total Bilirubin 2.4 H (0.2-1.0) mg/dL Direct Bilirubin (0.0-0.2) mg/dl GGT (15-85) U/L AST 62 H (15-37) U/L ALT 41 (16-63) U/L Alkaline Phosphatase 124 H (46-116) U/L Ammonia (11-32) umol/L Troponin I 0.107 H* (0.00-0.056) ng/mL NT-Pro-B Natriuret Pep (0-125) pg/mL Total Protein 6.5 (6.4-8.2) g/dl Albumin 2.4 L (3.4-5.0) g/dl Globulin 4.1 gm/dL Albumin/Globulin Ratio 0.6 L (1-2) Urine Color (Yellow) Urine Appearance (Clear) Urine pH (5.0-8.0) Ur Specific Preemption (1.005-1.030) Urine Protein (Negative) Urine Glucose (UA) (Negative) Urine Ketones (Negative) Urine Occult Blood (Negative) Urine Nitrite (Negative) Urine Bilirubin (Negative) Urine Urobilinogen (0.2-1.0) Ur Leukocyte Esterase (Negative) U Hyaline Cast (Auto) (0-5) /lpf Urine RBC (0-5) /hpf Urine WBC (0-5) /hpf Ur Squamous Epith Cells (0-5) /hpf Urine Bacteria (FEW) /hpf Urine Mucus (FEW) /hpf Urine Opiates Screen (LNKMJC=184) Ur Buprenorphine Scrn (CUTOFF=10) Ur Oxycodone Screen (CNR4QJ=526) Urine Methadone Screen (HBZ0CM=573) Ur Propoxyphene Screen (VWAUSW=325) Ur Barbiturates Screen (CJFOBT=109) Ur Tricyclics Screen (NSVCYZ=215) Ur Phencyclidine Scrn (CUTOFF=25) Ur Amphetamine Screen (YIXFZY=344) U Methamphetamines Scrn (CWTVPX=925) U Benzodiazepines Scrn (GGCPYC=398) U Cocaine Metab Screen (WVBZXL=361) U Marijuana (THC) Screen (CUTOFF=50) Ethyl Alcohol (0.00) gm% SARS-CoV-2 RNA (MOOSE) (NEGATIVE) Meds: Medications Generic Name Dose Route Start Last Admin Trade Name Freq PRN Reason Stop Dose Admin Propofol 100 mls @ 3.674 mls/hr 03/11/21 20:00 03/12/21 08:02 Diprivan 100 Ml IV 20 mcg/kg/min TITRATE ANDER 14.696 mls/hr Titration Protocol 5 MCG/KG/MIN Fentanyl 2,500 mcg/ Sodium 250 mls @ 12.247 mls/hr 03/11/21 20:00 03/12/21 11:07 Chloride IV 5 mcg/kg/hr TITRATE ANDER 61.235 mls/hr Titration Protocol 1 MCG/KG/HR Ketamine HCl 500 mg/ Sodium 500 mls @ 4.8 mls/hr 03/11/21 22:00 03/12/21 02:45 Chloride IV 20 mls/hr TITRATE ANDER Infusion Cefepime HCl 2 gm/ Sodium 50 mls @ 100 mls/hr 03/12/21 07:30 03/12/21 09:07 Chloride IV 03/17/21 07:31 100 mls/hr Q8H ANDER Administration Metronidazole 500 mg/ Premix 100 mls @ 100 mls/hr 03/12/21 07:30 03/12/21 08:01 IV 03/17/21 07:31 100 mls/hr Q8H ANDER Administration Sodium Chloride 1,000 mls @ 75 mls/hr 03/12/21 07:15 Normal Saline IV ASDIRECTED ANDER Norepinephrine Bitartrate 8 mg 250 mls @ 3.75 mls/hr 03/12/21 09:15 03/12/21 10:00 / Dextrose/Water IV 17 mcg/min TITRATE ANDER 31.875 mls/hr Titration Protocol 2 MCG/MIN Discontinued Medications Generic Name Dose Route Start Last Admin Trade Name Freq PRN Reason Stop Dose Admin Cefepime HCl Confirm 03/12/21 07:53 Cefepime 2 Gm Vial Administered 03/12/21 07:54 Dose 2 gm .ROUTE .STK-MED ONE Etomidate 40 mg 03/11/21 23:00 Etomidate 2 Mg/Ml 20 Ml Sdv IVPUSH 03/11/21 23:01 .STK-MED ONE Fentanyl Confirm 03/11/21 19:40 03/11/21 20:06 Fentanyl 2500 Mcg/50 Ml Sdv Administered 03/11/21 19:41 Not Given Dose 2,500 mcg .ROUTE .STK-MED ONE Furosemide 40 mg 03/11/21 16:18 03/11/21 17:00 Furosemide 40 Mg/4 Ml Vial IVPUSH 03/11/21 16:19 40 mg NOW ONE Administration Furosemide 40 mg 03/12/21 11:46 03/12/21 11:52 Furosemide 40 Mg/4 Ml Vial IVPUSH 03/12/21 11:47 40 mg NOW ONE Administration Propofol Confirm 03/11/21 19:26 03/11/21 20:05 Diprivan 100 Ml Administered 03/11/21 19:27 Not Given Dose 100 mls @ as directed .ROUTE .STK-MED ONE Sodium Chloride Confirm 03/11/21 19:41 03/11/21 20:06 Normal Saline Administered 03/11/21 19:42 Not Given Dose 250 mls @ as directed .ROUTE .STK-MED ONE Norepinephrine Bitartrate 4 mg 250 mls @ 7.5 mls/hr 03/11/21 21:45 03/12/21 09:08 / Dextrose/Water IV Infused TITRATE ANDER Titration Protocol 2 MCG/MIN Cefepime HCl 2 gm/ Sodium 50 mls @ 100 mls/hr 03/11/21 23:20 03/12/21 00:09 Chloride IV 03/11/21 23:49 100 mls/hr ONETIME ONE Administration Lactated Ringer's 1,000 mls @ 75 mls/hr 03/12/21 00:15 03/12/21 00:54 Ringers, Lactated IV 75 mls/hr ASDIRECTED ANDER Administration Rocuronium Leisenring 50 mg 03/11/21 23:00 Rocuronium 50 Mg/5 Ml Vial .ROUTE 03/11/21 23:01 .STK-MED ONE Succinylcholine Chloride 200 mg 03/11/21 23:00 Succinylcholine 200 Mg/10 Ml Mdv .ROUTE 03/11/21 23:01 .STK-MED ONE - Re-Assessments/Exams Free Text/Narrative Re-Assessment/Exam: 03/11/21 17:41 At this point I meant to start him on BiPAP see if I can get his CO2 to come down I have given him 40 mg of Lasix. I am suspicious for aspiration type pneumonia after reviewing his chest x-ray possible infiltrate in the right lung. Urine is suspicious for an infectious process as well but it could be contaminated. He will be started on Zosyn. I discussed the patient's case with our hospitalist we do not have beds but he concurs with therapy. Case was disc ussed with the [facility] and they will try and locate a bed. 03/11/21 19:29 And is change of shift further care and disposition per Dr. Samuels. This case has been discussed with the our community hospital transfer farrar. His gases after an hour on BiPAP look a little worse the patient is less responsive it is my understanding he will be intubated. Free Text/Narrative Re-Assessment/Exam: 03/12/21 13:03 Patient situation is still guarded he is in critical shape. As pressures are good his gases look much better his chemistries are still concerning for a mildly elevated potassium and hyponatremia. He has good urine output he was given 40 mg of Lasix this morning. We were notified that [facility] can accept this patient now. Case was reviewed with Dr. Muhammad who is kind enough to accept this patient in transfer were still working on the transfer details. But because of limitations on our end it appears the patient will be flown there. Departure - Departure Time of Disposition: 13:14 Reason for Transfer *Q: Other Sepsis Event Note (ED) - Focused Exam Vital Signs: Vital Signs Temp Pulse Resp BP Pulse Ox 03/12/21 12:18 117 H 26 H 124/75 92 L 03/12/21 11:05 36.9 C 121 H 26 H 128/75 93 L 03/12/21 10:07 117 H 127/67 97 03/12/21 08:56 120 H 20 114/72 97 03/12/21 06:44 37.1 C 18 111/73 99 03/12/21 05:38 37.1 C 20 110/63 98 03/12/21 03:35 37.2 C 20 116/67 100 - My Orders Last 24 Hours: My Active Orders 03/11/21 16:05 Insert Guardado Catheter [Insert Urinary Catheter] [OM.PC] Routine Urinary Catheter Assessment [RC] ASDIRECTED 03/11/21 17:05 Blood Culture x2 Reflex Set [OM.PC] Stat 03/11/21 17:30 BLOOD CULTURE [MREF] Stat BLOOD CULTURE [MREF] Stat - Assessment/Plan Last 24 Hours: My Active Orders 03/11/21 16:05 Insert Guardado Catheter [Insert Urinary Catheter] [OM.PC] Routine Urinary Catheter Assessment [RC] ASDIRECTED 03/11/21 17:05 Blood Culture x2 Reflex Set [OM.PC] Stat 03/11/21 17:30 BLOOD CULTURE [MREF] Stat BLOOD CULTURE [MREF] Stat
--- NOTE | 2021-03-11 14:54 | CR ---
Chest: Frontal view of the chest was obtained. Comparison: No prior chest imaging is available. Heart size and mediastinum appear within normal limits for technique. Slight parenchymal density is noted within the right lung base either due to minimal atelectasis or small area of pneumonia. Left lung is felt to be clear. Bony structures show degenerative change within the left shoulder with prior surgery. Prior lumbar spine surgery is also noted. Old right-sided rib fractures are seen which appear healed. Impression: 1. Slight density within the right lung base either due to atelectasis or small area of pneumonia. Please correlate with the patient's symptoms. 2. Other findings as described above which appear to be chronic. Diagnostic code #3
[2021-03-11] MEDS ORDERED: Furosemide 40 MG/4 ML VIAL IVPUSH ONE (16:18)
[2021-03-11] MEDS ORDERED: propofoL 100 ML ONE (19:26)
[2021-03-11] MEDS ORDERED: fentaNYL 2500 MCG/50 ML SDV ONE (19:40)
[2021-03-11] MEDS ORDERED: Sodium Chloride 0.9% 250 ML ONE (19:41)
[2021-03-11] MEDS: propofoL 100 ML IV SCH (20:06)
[2021-03-11] MEDS: fentaNYL 2,500 MCG in Sodium Chloride 0.9% 200 ML IV SCH (20:06)
[2021-03-11] MEDS ORDERED: Ketamine 500 mg/10 ML MDV IV ONE (21:45)
[2021-03-11] MEDS: Norepinephrine 4 MG in Dextrose 5% in Water 246 ML IV SCH ×2 (21:54)
[2021-03-11] MEDS ORDERED: Ketamine 500 MG in Sodium Chloride 0.9% 490 ML IV SCH (22:00)
[2021-03-11] MEDS ORDERED: Succinylcholine 200 MG/10 ML MDV ONE (23:00)
[2021-03-11] MEDS ORDERED: Etomidate 2 MG/ML 20 ML SDV IVPUSH ONE (23:00)
[2021-03-11] MEDS ORDERED: Rocuronium 50 MG/5 ML Vial ONE (23:00)
[2021-03-11] MEDS ORDERED: Cefepime 2 GM in Sodium Chloride 0.9% 50 ML IV ONE (23:20)
[2021-03-12] MEDS ORDERED: Lactated Ringers 1,000 ML IV SCH (00:15)
[2021-03-12] MEDS: Norepinephrine 4 MG in Dextrose 5% in Water 246 ML IV SCH ×6 (00:53→06:21)
[2021-03-12] MEDS: fentaNYL 2,500 MCG in Sodium Chloride 0.9% 200 ML IV SCH ×2 (01:26→06:46)
[2021-03-12] MEDS: propofoL 100 ML IV SCH (04:15)
[2021-03-12] MEDS ORDERED: Sodium Chloride 0.9% 1,000 ML IV SCH (07:15)
--- NOTE | 2021-03-12 07:28 | CR ---
Chest: Frontal view of the chest was obtained. Comparison: Prior chest x-ray performed earlier on the same day (2:16 PM). Endotracheal tube is seen. Tip lies above the level of the clavicles in satisfactory position. Nasogastric tube is seen coursing into the stomach. Lungs appear without change from prior exam. Prior left shoulder surgery is noted. Prior lumbar spine surgery is seen. Impression: 1. Satisfactory position of endotracheal tube and nasogastric tube. 2. Other portions of the chest are stable from prior exam. Diagnostic code #3
--- NOTE | 2021-03-12 07:29 | CR ---
Chest: Frontal view of the chest was obtained. Comparison: Prior chest x-ray performed earlier on the same day (7:43 PM). Increased density within the right lung base is seen which is an interval change from prior study presumably due to increased atelectasis. Satisfactory position of endotracheal tube and nasogastric tube is seen. Central line is seen entering from the jugular location which lies within the right atria. Bony structures are unchanged. Impression: 1. Satisfactory position of endotracheal tube and nasogastric tube. Central line is seen lying within the right atria. 2. Increasing density within the right lung base presumably due to increasing atelectasis. 3. Other findings which are stable as noted above. Diagnostic code #3
[2021-03-12] MEDS ORDERED: Cefepime 2 GM in Sodium Chloride 0.9% 50 ML IV SCH (07:30)
[2021-03-12] MEDS ORDERED: metroNIDAZOLE/Normal Saline 500 MG in Premix Bag 1 BAG IV SCH (07:30)
[2021-03-12] MEDS ORDERED: Cefepime 2 GM Vial ONE (07:53)
--- NOTE | 2021-03-12 08:38 | CR ---
Chest: Frontal view of the chest is obtained. Comparison: Prior chest x-ray performed on 03/11/21. Central line is noted. Tip is difficult to see but appears to lie close to the right atrial and superior vena cava junction. Decreased atelectasis within the right lung base is seen. Slight atelectasis within the left lung base. Heart size and mediastinum are stable. Endotracheal tube is seen which is satisfactory. Nasogastric tube is seen which appears satisfactory. Bony structures are unremarkable for the patient's age. Impression: 1. Central line with tip not being well seen but most likely lies at the right atrial and superior vena cava junction. 2. Mild atelectasis within both lung bases which has improved within the right lung base from prior chest x-ray. 3. Satisfactory position of endotracheal tube and nasogastric tube. Diagnostic code #3
[2021-03-12] MEDS: Norepinephrine 8 MG in Dextrose 5% in Water 242 ML IV SCH ×4 (09:16→13:19)
[2021-03-12] MEDS ORDERED: Furosemide 40 MG/4 ML VIAL IVPUSH ONE (11:46)
== END 2021-03-12 14:10 ==
LOC: JD.ED 13:55
DX: K72.90 Hepatic failure, unspecified without coma (principal); J96.90 Respiratory failure, unspecified, unspecified whether with hypoxia or hypercapnia; N28.9 Disorder of kidney and ureter, unspecified; F10.20 Alcohol dependence, uncomplicated; R94.31 Abnormal electrocardiogram [ECG] [EKG]; Z72.0 Tobacco use; Y90.0 Blood alcohol level of less than 20 mg/100 ml; Z20.822 Contact with and (suspected) exposure to COVID-19
CPT/HCPCS: 31500; 36415; 36556; 36600; 43752; 51702; 71045; 80048; 80053; 80306; 80307; 81001; 82140; 82248; 82803; 82977; 83605; 83880; 84484; 85007; 85025; 85027; 85610; 87040; 87635; 94660; 96365; 96366; 96368; 96375; 99291; J0330; J0692; J1940; J2704; J3010; J3490; J7040; J7050; J7060; J7120; U0002